=== PATIENT | male | born 1970 | race Caucasian/White ===

== ENCOUNTER 2023-05-17 16:42 | Emergency (ER) | payer OTHER ==
[~2023-05-17] VITALS: Ht 195.6 cm; Wt 142.9 kg
[2023-05-17] MEDS ORDERED: ZOFRAN ONE (17:10)
[2023-05-17] MEDS ORDERED: DILAUDID ONE (17:11)
[2023-05-17 17:48] VITALS: BP 132/65; PULSE 100; RESP 18; TEMP 98.9; O2SAT 97
[2023-05-17 18:35] LABS: INFLUENZA VIRUS A ANTIGEN NEGATIVE (NEG); INFLUENZA VIRUS B ANTIGEN NEGATIVE (NEG)
[2023-05-17 19:00] VITALS: BP 132/65; PULSE 92; RESP 18; TEMP 98.9; O2SAT 97
[2023-05-17] MEDS ORDERED: VIBRAMYCIN PO STA (19:07)
[2023-05-17] MEDS ORDERED: SOLU-MEDROL IM STA (19:07)
[2023-05-17] MEDS ORDERED: DUONEB 0.5-3(2.5) MG/3 ML IH STA (19:07)
[2023-05-17] MEDS ORDERED: DECADRON IH STA (19:07)
[2023-05-17] MEDS ORDERED: SOLU-MEDROL ONE (19:14)
[2023-05-17] MEDS ORDERED: VIBRAMYCIN ONE (19:14)
[2023-05-17] MEDS ORDERED: DUONEB 0.5-3(2.5) MG/3 ML IH ONE (19:16)
[2023-05-17] MEDS ORDERED: DECADRON ONE (19:17)
[2023-05-17 19:24] VITALS: PULSE 106; RESP 20; O2SAT 99
[2023-05-17 19:31] VITALS: PULSE 106; RESP 22; O2SAT 96
[2023-05-17 19:35] LABS: HEMATOCRIT(ML) 43.7 % (37.0-53.0); MEAN CORP HGB 31.9 pg (26-34); MEAN CORP HGB CONCENTRATION 34.3 g/dL (33-36.5); RED BLOOD CELL 4.7 10^6/uL (4.50-5.90); RED CELL DISTRIBUTION WIDTH 13.2 % (11.5-14.5); WHITE BLOOD CELL 14.3 10^3/uL (4.5-11.0)
[2023-05-17 19:48] LABS: ANION GAP 11.5; BUN/CREATININE RATIO 18.34 (10.0-20.0); CARBON DIOXIDE 30.4 mmol/L (20.0-32); CREATININE SERUM 1.09 mg/dL (0.59-1.40); POTASSIUM 3.9 mmol/L (3.6-5.2)
[2023-05-17 19:49] LABS: CALCIUM 9.6 mg/dL (8.4-10.5)
[2023-05-17 20:00] VITALS: BP 130/64; PULSE 97; RESP 18; TEMP 98.9; O2SAT 97
[2023-05-17 21:32] VITALS: BP 135/61; PULSE 96; RESP 18; TEMP 98.9; O2SAT 97
== END 2023-05-17 21:37 | disposition home or self-care (01) ==
LOC: ER 16:42
DX: J18.9 Pneumonia, unspecified organism (principal); J45.901 Unspecified asthma with (acute) exacerbation; I10 Essential (primary) hypertension; Z20.822 Contact with and (suspected) exposure to COVID-19
CPT/HCPCS: 99285; 71275; 71045; 87426; 96372; 85027; 36415; 80048; 87804 ×2; 94640; J1100; J2930; Q9965; J1170; J2405